=== PATIENT | male | born 1955 | race Caucasian/White ===

== ENCOUNTER → 2018-04-17 | Outpatient (CLI) | payer OTHER ==
[~2018-04-17] MED LIST: AMBEREN; FISH OIL 1,0001 EAC5; LOW DOSE ASPIRI81 M1; ZOCOR 20 MG TAB20 M1
== END ==
LOC: M.RAD 10:10
DX: M47.816 Spondylosis without myelopathy or radiculopathy, lumbar region (principal); M16.0 Bilateral primary osteoarthritis of hip